=== PATIENT | male | born 1955 | race Caucasian/White ===

== ENCOUNTER 2018-06-29 07:34 | Observation (INO) ==
[2018-06-29] MEDS ORDERED: Acetaminophen 500 MG Tablet PO PRN (14:54)
--- NOTE | 2018-06-29 16:09 | P.HPCA ---
History of Present Illness Primary Care Physician: UNKNOWN Chief Complaint: Chest pain History of Present Illness: 63-year-old male with history of coronary artery disease, x2 cardiac stent, hypertension, and renal cancer presents emergency room for further evaluation of nonexertional chest pressure. Onset last evening. Location substernal. Characterizes intermittent waves of heavy pressure duration 2-5 minutes. Duration constant. No associated symptoms of nausea, vomiting, diaphoresis, or dyspnea. Denies similar discomfort reminded him of past cardiac events. No precipitating or relieving factors. Reports recently completing nuclear exercise stress test in May and a CT chest on June 11. Reports his tobacco stripper told him nuclear test completely normal. Follow-up appointment is scheduled for 07/04/[address] chest. Endorses increased situational stress , and he "worries a lot." No recent illness, fever, or injury. Reports being very anxious regarding recent diagnosis of thoracic aneurysm. Worries if blood pressure elevates, aneurysm will "burst." His son, daughter in law, and 2 year old grandson lives with him, reports increase situational stress regarding this. Recently moved from [place] year and a half ago. Prior to moving had not seen a tobacco stripper in 4 years, therefore his new primary care provider referred him to tobacco stripper, Dr. Xiong. Past cardiac testing Nuclear exercise cardiac testing completed at end of May reported to be unremarkable. X1 cardiac stent placed in 2003, x1 cardiac stent placed in 2008 Social history Known coronary artery disease, hypertension, and hyperlipidemia. No known diabetes. Former [id number] smoker. No alcohol or recreational drug use. Single. Son, [id number], and 2-year-old grandson currently living with him. Reports being active however denies regular cardiovascular exercise Family history Noncontributory for early onset cardiovascular disease. - Diagnosis (1) Atypical chest pain (2) History of coronary artery disease (3) Thoracic aortic aneurysm (4) Ureteropelvic junction (UPJ) obstruction Review of Systems All other systems reviewed negative except as stated in HPI PMFSH - History History Provided By: Patient - Medical History Medical History: Medical History (Last Reviewed 06/29/18 @ 17:09 by ASHLEY Lerma) CAD (coronary artery disease) Cancer of kidney High cholesterol Hypertension - Surgical History Surgical History: Surgical History (Last Reviewed 06/29/18 @ 17:09 by ASHLEY Lerma) History of heart artery stent History of nephrectomy - Social History I have reviewed the patient's Social History: Yes - Tobacco History Second Hand Smoke Exposure: No Tobacco Use In Past 30 Days: No Smoking Status: Former smoker - Alcohol History How Often Do You Have a Drink Containing Alcohol: 2 to 4 times a month - Substance Use History Substance History: No History of Abuse - Travel History History of Recent Travel: No Recent Travel in the [place] Within the Last 8 Weeks: No Recent Travel Out of the Country Within the Last 8 Weeks: No Medications and Allergies Active Medications: Active Medications Acetaminophen (Tylenol) 500 mg PO Q4H PRN PRN Reason: HEADACHE Nitroglycerin (Nitrostat Sl) 0.4 mg SL Q5M PRN PRN Reason: CHEST PAIN Ondansetron HCl (Zofran Inj) 4 mg IV.PUSH Q6H PRN PRN Reason: NAUSEA Sodium Chloride (Ns Flush) 2 ml IV.FLUSH BID FLOR Sodium Chloride (Ns Flush) 2 ml IV.FLUSH UNSCH PRN PRN Reason: FLUSH AFTER USING IV ACCESS Allergies Allergy/AdvReac Type Severity Reaction Status Date / Time No Known Allergies Allergy Verified 06/29/18 07:50 Home Medications Medication Instructions Recorded Confirmed Type aspirin 81 mg PO DAILY 03/31/18 06/29/18 History clopidogrel [Plavix] 75 mg PO DAILY 03/31/18 06/29/18 History pravastatin 10 mg PO DAILY 03/31/18 06/29/18 History lisinopril-hydrochlorothiazide 1 tab PO DAILY 06/29/18 06/29/18 History Exam Vital signs: Intake & Output 06/28/18 06/29/18 06/29/18 18:59 06:59 18:59 Weight 95.254 kg Other: Date of Last Bowel Movement 06/29/18 Weight On Admission 95.254 kg Narrative: GENERAL: Alert WN, WD, NAD, pleasant, anxious, obese male HEAD: NC, AT EYES: Sclera clear, conjunctiva without injection, pupils equal and round ENT: Mucous membranes pink and moist NECK: Supple, no masses, trachea midline CV: RRR, without murmur, rub, gallop, no JVD, S1-S2 no S3-S4. No carotid or femoral bruits. Chest wall nontender to palpation. RESP: Clear lungs throughout bilateral, no crackles, wheeze, rhonchi, symmetrical chest rise, nonlabored, able to speak in full sentences ABD: Soft, NT, ND, no masses, positive bowel tones EXT: Pulses +2x4, no dependent edema MS: Normal tone x4 extremities, nontender, no obvious deformities, full range of motion NEURO: CN II through CN XII grossly intact, motor strength 5/5 PSYCH: A+O x3, pleasant affect, appropriate speech, anxious mood, appropriate insight and judgment SKIN: Normal turgor, normal texture, no lesions, no rashes, brisk cap refill, even hair distribution Results Intake and Output 06/29/18 06/29/18 06/29/18 06:59 14:59 22:59 Other: Date of Last Bowel Movement 06/29/18 Weight 95.254 kg Weight On Admission 95.254 kg Patient Weight 06/30/18 06:59 Weight 95.254 kg EKG interpretations - EKG EKG results cardiology: sinus rhythm, normal axis, normal QRS, normal ST/T Caprini VTE Risk Assessment Caprini VTE Risk Assessment: Moderate/High Risk (score >= 2) Caprini Risk Assessment Model: Point Value = 1 Point Value = 2 Point Value = 3 Point Value = 5 Age 41-60 Minor surgery BMI > 25 kg/m2 Swollen legs Varicose veins or History of unexplained or recurrent spontaneous Oral contraceptives or hormone replacement Sepsis (< 1 month) Serious lung disease, including pneumonia (< 1 month) Abnormal pulmonary function Acute myocardial infarction Congestive heart failure (< 1 month) History of inflammatory bowel disease Medical patient at bed rest Age 61-74 Arthroscopic surgery Major open surgery (> 45 min) Laparoscopic surgery (> 45 min) Malignancy Confined to bed (> 72 hours) Immobilizing plaster cast Central venous access Age >= 75 History of VTE Family history of VTE Factor V Leiden Prothrombin 11860H Lupus anticoagulant Anticardiolipin antibodies Elevated serum homocysteine Heparin-induced thrombocytopenia Other congenital or acquired thrombophilia Stroke (< 1 month) Elective arthroplasty Hip, pelvis, or leg fracture Acute spinal cord injury (< 1 month) Prophylaxis Regimen: Total Risk Factor Score Risk Level Prophylaxis Regimen 0-1 Low Early ambulation 2 Moderate Order ONE of the following: *Sequential Compression Device (SCD) *Heparin 5000 units SQ BID 3-4 Higher Order ONE of the following medications: *Heparin 5000 units SQ TID *Enoxaparin/Lovenox 40 mg SQ daily (WT < 150 kg, CrCl > 30 mL/min) *Enoxaparin/Lovenox 30 mg SQ daily (WT < 150 kg, CrCl > 10-29 mL/min) *Enoxaparin/Lovenox 30 mg SQ BID (WT < 150 kg, CrCl > 30 mL/min) AND/OR *Sequential Compression Device (SCD) 5 or more Highest Order ONE of the following medications: *Heparin 5000 units SQ TID (Preferred with Epidurals) *Enoxaparin/Lovenox 40 mg SQ daily (WT < 150 kg, CrCl > 30 mL/min) *Enoxaparin/Lovenox 30 mg SQ daily (WT < 150 kg, CrCl > 10-29 mL/min) *Enoxaparin/Lovenox 30 mg SQ BID (WT < 150 kg, CrCl > 30 mL/min) AND *Sequential Compression Device (SCD) Assessment and Plan - Assessment (1) Atypical chest pain Code(s): R07.89 - Other chest pain Status: Acute Plan: Admitted chest pain center. ACS ruled out 3 sets of EKGs and cardiac enzymes. Seen and evaluated by Dr. Sandro Valero. No further cardiac testing required. Reassurance given. Discomfort likely related to anxiety. Plan to discharge home. Instructed to keep follow-up appointment with tobacco stripper scheduled next week. Instructed to return to the ER for any further concerns. (2) History of coronary artery disease Code(s): Z86.79 - Personal history of other diseases of the circulatory system Status: Chronic Plan: Continue aspirin, pravastatin, Plavix, and lisinopril combo. (3) Thoracic aortic aneurysm Code(s): I71.2 - Thoracic aortic aneurysm, without rupture Status: Chronic Plan: Reassurance and education provided. Discussed importance of tight blood pressure control discussed in length. (4) Ureteropelvic junction (UPJ) obstruction Code(s): N13.5 - Crossing vessel and stricture of ureter without hydronephrosis Status: Chronic Plan: Results reviewed with Dr. Valero, then discussed with patient. Keep follow-up appointment with primary care provider and plan for referral for urologist. Verbalized understanding. H&P: Quality - VTE Deep Vein Thrombosis/Pulmonary Embolism Present on Admission: No (3) Thoracic aortic aneurysm Qualifiers: Presence of rupture: without rupture Qualified Code(s): I71.2 - Thoracic aortic aneurysm, without rupture
== END 2018-06-29 17:08 | disposition home or self-care (01) ==
LOC: NEDDLT 07:34 → NEPFCDU 07:34